=== PATIENT | female | born 1980 | race Caucasian/White ===

== ENCOUNTER 2019-02-21 10:46 | Emergency (ER) | payer MEDICAID ==
[~2019-02-21] VITALS: Ht 162.6 cm; Wt 56.7 kg
[2019-02-21] MEDS ORDERED: IPRATROPIUM 0.02% 0.5 MG/2.5 ML NEBU INH ONE (10:50)
[2019-02-21] MEDS ORDERED: ALBUTEROL 0.083% 2.5 MG/3 ML NEBU INH ONE (10:50)
[2019-02-21] MEDS ORDERED: predniSONE 20 MG TAB PO ONE (10:50)
--- NOTE | 2019-02-21 10:50 | NUR ---
Patient ambulated to bed 6. RN evaluating patient at bedside.
[2019-02-21 10:51] VITALS: BP 129/86
--- NOTE | 2019-02-21 10:55 | NUR ---
38Y/F BIB SELF WITH C/O ASTHMA EXACERBATION, WHEEZING WITH EXPIRATION, SAT 97% AT THIS TIME, EVEN AND UNLABORED BREATHING, PT IS UP IN BED, BED DOWN, LOW, LOCKED, AAOX4 WITH VSS AT THIS TIME, ER MD AWARE AND NOTIFIED OF PT STATUS, BEDRAIL UP X . PMH: ASTHMA RX: NONE
--- NOTE | 2019-02-21 10:55 | NUR ---
Patient being evaluated by at bedside.
--- NOTE | 2019-02-21 10:56 | NUR ---
RESP CALLED FOR BREATHING TREATMENT
--- NOTE | 2019-02-21 11:02 | NUR ---
Breathing treatment administered at bedside by respiratory therapist.
--- NOTE | 2019-02-21 11:02 | NUR ---
RT AT BEDSIDE AT THIS TIME, PT RECIEVING BREATHING TREATMENT
--- NOTE | 2019-02-21 11:22 | NUR ---
Dr. Nino evaluating patient at bedside.
--- NOTE | 2019-02-21 11:48 | NUR ---
Dr. Nino re-evaluating patient at bedside.
[2019-02-21 11:55] VITALS: BP 133/76
--- NOTE | 2019-02-21 11:55 | NUR ---
VSS, LUNG SOUNDS CLEAR BILAT, NO WHEEZING PRESENT Patient discharged with v/s stable. Written and verbal after care instructions given and explained. Patient alert, oriented and verbalized understanding of instructions. Ambulatory with steady gait. All questions addressed prior to discharge. ID band removed. Patient advised to follow up with PMD. Rx of PREDNISONE, & ALBUTEROL given. Patient educated on indication of medication including possible reaction and side effects. Opportunity to ask questions provided and answered.
== END 2019-02-21 11:55 | disposition home or self-care (01) ==
LOC: MED 10:46
DX: J45.901 Unspecified asthma with (acute) exacerbation (principal)
CPT/HCPCS: 94640; 99283; J7512; J7613; J7644